=== PATIENT | female | born 1945 | race Caucasian/White ===

== ENCOUNTER 2017-07-07 05:56 | Day surgery (SDC) | payer OTHER | END 2017-07-07 11:45 | disposition home or self-care (01) | LOC: AMB-ENDOS 05:56 | DX: D12.8 Benign neoplasm of rectum (principal); K57.30 Diverticulosis of large intestine without perforation or abscess without bleeding; K64.8 Other hemorrhoids ==

== ENCOUNTER 2017-07-07 11:17 | Outpatient (CLI) | payer OTHER | END 2017-07-07 16:01 | disposition home or self-care (01) | LOC: TOM 11:17 | DX: K62.1 Rectal polyp (principal); Z12.11 Encounter for screening for malignant neoplasm of colon; K92.1 Melena; K57.30 Diverticulosis of large intestine without perforation or abscess without bleeding; K76.0 Fatty (change of) liver, not elsewhere classified ==